=== PATIENT | male | born 1955 | race Caucasian/White ===

== ENCOUNTER 2018-09-02 11:07 | Emergency (ER) | payer BC ==
[~2018-09-02] VITALS: Ht 182.9 cm; Wt 163.3 kg
[~2018-09-02 11:07] MED LIST: ALEVE220 MG PO; ASPIRIN325 MG PO; ATENOLOL50 MG PO; FUROSEMIDE40 MG PO; KEFLEX500 MG PO; NORCO 7.5-3251 EACH PO; [UNRECOGNIZED DRUG - OTHER] PO
== END 2018-09-02 11:36 | disposition home or self-care (01) ==
LOC: FSED 11:07
DX: R30.0 Dysuria (principal); N30.90 Cystitis, unspecified without hematuria
CPT/HCPCS: 81003; 87086; 87186; 99283

== ENCOUNTER 2019-04-26 18:20 | Inpatient (IN) | payer BC, OTHER ==
[~2019-04-26] VITALS: Ht 182.9 cm; Wt 176.4 kg
[~2019-04-26 18:20] MED LIST changes: +FENTANYL CITRATE/PF 100MCG/2 ML INJ ONE; +MIDAZOLAM HCL 2 MG/2 ML VIAL ONE
--- OUTSIDE RECORDS SUMMARY | 2019-04-26 18:25 | XMS REPORT ---
Author Author Julián Argueta Organization [employer] Address Unknown Phone Unavailable Care Team Providers Care Monkey Breeder Name Role Phone Julián Argueta CP Unavailable Allergies No Known Allergies Problems Problem Type Condition Code Onset Dates Condition Status Problem Primary osteoarthritis of left knee M17.12 Active Problem BMI 50.0-59.9, adult Z68.43 Active Assessment Pain in testicle N50.819 Active Medications Medication Code System Code Instructions Start Date End Date Status Dosage Nystatin [facility] 78829671419 558611 UNIT/GM Externally Twice a day March 11, 2019 March 21, 2019 Active 1 application to affected area Aspir-81 [facility] 36143275190 81 MG Orally Once a day Active 1 tablet Results No Known Results Summary Purpose [employer]ClinicalWorks Submission
--- OUTSIDE RECORDS SUMMARY | 2019-04-26 18:25 | XMS REPORT ---
Author Author Julián Argueta Organization [employer] Address Unknown Phone Unavailable Care Team Providers Care Living Coach Name Role Phone Julián Argueta CP Unavailable Allergies, Adverse Reactions, Alerts Substance Reaction Event Type N.K.D.A. Info Not Available Non Drug Allergy Problems Problem Type Condition Code Onset Dates Condition Status Problem Primary osteoarthritis of left knee M17.12 Active Problem BMI 50.0-59.9, adult Z68.43 Active Assessment Skin irritation R23.8 Active Assessment BMI 50.0-59.9, adult Z68.43 Active Assessment Pain in testicle N50.819 Active Assessment Potential for perineal swelling and discomfort Z91.89 Active Medications Medication Code System Code Instructions Start Date End Date Status Dosage Ibuprofen ND 46802931452 800 MG Orally every 6 hours prn Dec 08, 2018 Active 1 tablet with food or milk as needed Flexeril NDC 0 10 mg Orally three times a day (tid) as needed (prn) Dec 08, 2018 Active 1 tablet Nystatin ND 62660455109 234591 UNIT/GM Externally Twice a day March 11, 2019 March 21, 2019 Active 1 application to affected area Aspir-81 [place] 34306424374 81 MG Orally Once a day Active 1 tablet Vital Signs Date/Time: March 11, 2019 BMI 56.38 Index Weight 393 lbs Height 70 in Cardiac Monitoring Heart Rate 76 /min Blood Pressure Diastolic 72 mm Hg Blood Pressure Systolic 136 mm Hg Results No Known Results Summary Purpose [employer] Submission
--- OUTSIDE RECORDS SUMMARY | 2019-04-26 18:25 | XMS REPORT ---
Author Author Keeley Gardiner [facility] [employer] Address Unknown Phone Unavailable Care Team Providers Care Mold Chipper Name Role Phone Gonzalez Keeley Davila CP Unavailable Allergies, Adverse Reactions, Alerts Substance Reaction Event Type N.K.D.A. Info Not Available Non Drug Allergy Problems Problem Type Condition Code Onset Dates Condition Status Assessment Strain of lumbar region, initial encounter S39.012A Active Problem Primary osteoarthritis of left knee M17.12 Active Medications Medication Code System Code Instructions Start Date End Date Status Dosage Ibuprofen NDC 75593494528 800 MG Orally every 6 hours prn Dec 08, 2018 Jan 07, 2019 Active 1 tablet with food or milk as needed No OTC NDC 52523273496 In Vitro Active not defined Flexeril NDC 0 10 mg Orally three times a day (tid) as needed (prn) Dec 08, 2018 Jan 07, 2019 Active 1 tablet Aspir-81 NDC 32218677327 81 MG Orally Once a day Active 1 tablet Vital Signs Date/Time: Dec 08, 2018 BMI 56.96 Index Weight 397 lbs Height 70 in Cardiac Monitoring Heart Rate 83 /min Results No Known Results Summary Purpose eClinicalWorks Submission
--- OUTSIDE RECORDS SUMMARY | 2019-04-26 18:25 | XMS REPORT ---
Author Author [facility] Address Unknown Phone Unavailable Care Team Providers Care Seasonal Warehouse Associate Name Role Phone Unavailable Unavailable Problems This patient has no known problems. Allergies, Adverse Reactions, Alerts This patient has no known allergies or adverse reactions. Medications This patient has no known medications. Encounters Start Date/Time End Date/Time Encounter Type Admission Type Attending Clinicians Care Facility Care Department Encounter ID 2019-02-07 10:59:00 2019-02-07 10:59:00 [facility]patient [id number]
--- OUTSIDE RECORDS SUMMARY | 2019-04-26 18:25 | XMS REPORT | Continuity of Care Document ---
Author Author [facility] Interface Address Unknown Phone Unavailable Problems Problem Status Onset Date Classification Date Reported Comments Source XRAY Active 02/07/2019 [facility] Primary osteoarthritis of left knee Active Problem 04/02/2019 [facility] Acute right-sided low back pain with right-sided sciatica Active Problem 02/15/2019 [facility] Strain of lumbar region, initial encounter Active Diagnosis 01/18/2019 [facility] BMI 50.0-59.9, adult Active Problem 04/02/2019 [facility] Pain in testicle Active Diagnosis 04/02/2019 [facility] Hematochezia Active Diagnosis 02/15/2019 [facility] Skin irritation Active Diagnosis 04/02/2019 [facility] Potential for perineal swelling and discomfort Active Diagnosis 04/02/2019 [facility] Epididymal cyst Active Diagnosis 04/02/2019 [facility] Medications Medication Details Route Status Patient Instructions Ordering Provider Order Date Source Nystatin 1 application to affected area Externally Active 087725 UNIT/GM Externally Twice a day [place] 03/11/2019 [facility] Cipro 1 tablet Orally Active 500 mg Orally every 12 hrs [place] 01/16/2019 [facility] Flexeril 1 tablet Orally Active 10 mg Orally three times a day (tid) as needed (prn) [place] 12/08/2018 [facility] Ibuprofen 1 tablet with food or milk as needed Orally Active 800 MG Orally every 6 hours prn [place] 12/08/2018 [facility] Atenolol 50 Mg Tablet, 50 Mg Oral Daily Active 10/12/2014 [facility] [place] , Oral Active 10/12/2014 [facility] Furosemide 40 Mg Tablet, 40 Mg Oral Daily Active 10/12/2014 [facility] Naproxen Sodium (Aleve) 220 Mg Tablet, 220 Mg Oral Daily Active 10/12/2014 [facility] Aspir-81 1 tablet Orally Active 81 MG Orally Once a day [facility] No OTC not defined In Vitro Active In Vitro Carlos Davila [facility] Aspirin 325 Mg Tablet As Needed as needed for Headache Active [facility] Cephalexin Monohydrate (Keflex) 500 Mg Capsule Three Times A Day Active [facility] Hydrocodone Bit/Acetaminophen ([place] 7.5-325 Tablet) 1 Each Tablet Every 4 Hours as needed for Pain Active [facility] Allergies, Adverse Reactions, Alerts Substance Category Reaction Severity Reaction type Status Date Reported Comments Source No Known Drug Allergies Unknown Allergy to Substance Active 12/23/2009 [facility] N.K.D.A. Adverse Reaction Info Not Available Adverse Reaction Active 03/28/2019 [facility] Immunizations Immunization Date Given Site Status Last Updated Comments Source Results Order Name Results Value Reference Range Date Interpretation Comments Source Spine lumbar 2 or 3 views DX Spine lumbar 2 or 3 views DX Lumbar spine 3 views: There is normal alignment without fracture or dislocation. There is mild multilevel disc space narrowing without significant changes of the endplates. Small vertebral body spurs at L1-L2 and L3-L4 are noted. The SI joints are within normal limits. Mild atherosclerotic calcification in the distal aorta is noted. There are no other significant soft tissue abnormalities. IMPRESSION: Mild degenerative changes without acute radiographic abnormalities in the lumbar spine. [id number] 02/07/2019 - - Read by: Ross Floyd MD Dictated Date/time: 02/07/19 16:09 Electronically Signed by: Ross Floyd MD 02/07/19 16:11 FINAL REPORT [facility] Vital Signs Vital Sign Value Date Comments Source Weight 398 03/28/2019 [facility] Height 70 03/28/2019 [facility] Heart Rate 75 03/28/2019 [facility] Diastolic (mm Hg) 82 03/28/2019 [facility] Systolic (mm Hg) 146 03/28/2019 [facility] Weight 393 03/11/2019 [facility] Height 70 03/11/2019 [facility] Heart Rate 76 03/11/2019 [facility] Diastolic (mm Hg) 72 03/11/2019 [facility] Systolic (mm Hg) 136 03/11/2019 [facility] Weight 394 02/09/2019 [facility] Height 70 02/09/2019 [facility] Heart Rate 97 02/09/2019 [facility] Diastolic (mm Hg) 72 02/09/2019 [facility] Systolic (mm Hg) 138 02/09/2019 [facility] Weight 390 01/16/2019 [facility] Height 70 01/16/2019 [facility] Heart Rate 78 01/16/2019 [facility] Diastolic (mm Hg) 64 01/16/2019 [facility] Systolic (mm Hg) 136 01/16/2019 [facility] Weight 397 12/08/2018 [facility] Height 70 12/08/2018 [facility] Heart Rate 83 12/08/2018 [facility] Encounters Location Location Details Encounter Type Encounter Number Reason For Visit Attending Provider ADM Date DC Date Status Source Registered Emergency Room [id number] CAMMY ULRICH MD 09/02/2018 [facility] [place] Outpatient [id number] Keeley [facility] Davila 02/07/2019 02/08/2019 [facility] Procedures Procedure Code Date Perfomer Comments Source
--- OUTSIDE RECORDS SUMMARY | 2019-04-26 18:25 | XMS REPORT ---
Author Author Julián Argueta Organization [employer] Address Unknown Phone Unavailable Care Team Providers Care Revolving Inventory Clerk Name Role Phone Julián Argueta CP Unavailable Allergies, Adverse Reactions, Alerts Substance Reaction Event Type N.K.D.A. Info Not Available Non Drug Allergy Problems Problem Type Condition Code Onset Dates Condition Status Problem Primary osteoarthritis of left knee M17.12 Active Problem BMI 50.0-59.9, adult Z68.43 Active Assessment Potential for perineal swelling and discomfort Z91.89 Active Assessment Skin irritation R23.8 Active Assessment Epididymal cyst N50.3 Active Assessment Pain in testicle N50.819 Active Medications Medication Code System Code Instructions Start Date End Date Status Dosage Aspir-81 [facility] 20933910181 81 MG Orally Once a day Active 1 tablet Vital Signs Date/Time: March 28, 2019 BMI 57.10 Index Weight 398 lbs Height 70 in Cardiac Monitoring Heart Rate 75 /min Blood Pressure Diastolic 82 mm Hg Blood Pressure Systolic 146 mm Hg Results No Known Results Summary Purpose eClinicalWorks Submission
--- OUTSIDE RECORDS SUMMARY | 2019-04-26 18:25 | XMS REPORT | Summary of Care ---
Author Author [facility] Organization [facility] Address Unknown Phone Unavailable Encounter HQ Encntr_alias(FIN) [id number] Date(s): 02/07/19 - 02/07/19 [facility] [address] [place] [address]- Discharge Disposition: Home or Self Care Attending Physician: Keeley Gardiner DO Vital Signs No data available for this section Problem List No data available for this section Allergies, Adverse Reactions, Alerts Substance Reaction Severity Status NKDA Active Medications No data available for this section Results No data available for this section Immunizations No data available for this section Procedures No data available for this section Social History No data available for this section Assessment and Plan No data available for this section
--- OUTSIDE RECORDS SUMMARY | 2019-04-26 18:25 | XMS REPORT ---
Author Author Sanaz Hall Organization [employer] Address Unknown Phone Unavailable Care Team Providers Care Hospital Aide Name Role Phone Sanaz Hall Unavailable Allergies, Adverse Reactions, Alerts Substance Reaction Event Type N.K.D.A. Info Not Available Non Drug Allergy Problems Problem Type Condition Code Onset Dates Condition Status Problem Primary osteoarthritis of left knee M17.12 Active Problem Acute right-sided low back pain with right-sided sciatica M54.41 Active Assessment Hematochezia K92.1 Active Medications Medication Code System Code Instructions Start Date End Date Status Dosage Aspir-81 NDC 55700342687 81 MG Orally Once a day Active 1 tablet Ibuprofen NDC 19920869524 800 MG Orally every 6 hours prn Dec 08, 2018 Active 1 tablet with food or milk as needed Flexeril NDC 0 10 mg Orally three times a day (tid) as needed (prn) Dec 08, 2018 Active 1 tablet Vital Signs Date/Time: February 09, 2019 BMI 56.53 Index Weight 394 lbs Height 70 in Cardiac Monitoring Heart Rate 97 /min Blood Pressure Diastolic 72 mm Hg Blood Pressure Systolic 138 mm Hg Results Name Result Date Reference Range Unit Abnormality Flag CBC ----Platelets 325 [id number] ----NEUTROPHILS mid-0.8,gra-3.6 20190209 ----MCHC 32.0 20190209 ----MCH 31.1 20190209 ----MCV 96.9 20190209 ----RDW 13.0 [id number] ----WBC 6.3 91688177 ----Neutrophils (Absolute) mid-12.8H 20190209 ----RBC 4.54 20190209 ----Hemoglobin 14.1 70324249 ----Hematocrit 44.0 [id number] Summary Purpose eClinicalWorks Submission
--- OUTSIDE RECORDS SUMMARY | 2019-04-26 18:25 | XMS REPORT ---
Author Author Julián Argueta Organization [employer] Address Unknown Phone Unavailable Care Team Providers Care Oil Field Operator Name Role Phone Julián Argueta CP Unavailable Allergies, Adverse Reactions, Alerts Substance Reaction Event Type N.K.D.A. Info Not Available Non Drug Allergy Problems Problem Type Condition Code Onset Dates Condition Status Problem Primary osteoarthritis of left knee M17.12 Active Problem Acute right-sided low back pain with right-sided sciatica M54.41 Active Assessment Strain of lumbar region, initial encounter S39.012A Active Assessment Acute right-sided low back pain with right-sided sciatica M54.41 Active Medications Medication Code System Code Instructions Start Date End Date Status Dosage Flexeril NDC 0 10 mg Orally three times a day (tid) as needed (prn) Dec 08, 2018 Active 1 tablet Ibuprofen NDC 30615063682 800 MG Orally every 6 hours prn Dec 08, 2018 Active 1 tablet with food or milk as needed Aspir-81 NDC 79520837300 81 MG Orally Once a day Active 1 tablet Cipro NDC 05681033962 500 mg Orally every 12 hrs Jan 16, 2019 January 30, 2019 Active 1 tablet Vital Signs Date/Time: Jan 16, 2019 BMI 55.95 Index Weight 390 lbs Height 70 in Cardiac Monitoring Heart Rate 78 /min Blood Pressure Diastolic 64 mm Hg Blood Pressure Systolic 136 mm Hg Results Name Result Date Reference Range Unit Abnormality Flag URINE AUTO W/O SCOPE ----Spec [place] 1.020 20190116 ----Turbidity CLEAR 20190116 ----Glucose NEG 20190116 ----Ketones NEG 20190116 ----Blood LARGE 20190116 ----Bili SMALL 20190116 ----Color YELLOW 20190116 ----pH 5.0 20190116 ----Leuk Est MODERATE 20190116 ----Nitrite POSITIVE 20190116 ----Urobilinogen 0.2 20190116 ----Protein TRACE 20190116 Summary Purpose eClinicalWorks Submission
[2019-04-26] MEDS ORDERED: SODIUM CHLORIDE 0.9% 1000ML 1,000 ML IV SCH (19:00)
[2019-04-26] MEDS ORDERED: PIPER-TAZ 3.375 GM 50 ML IV ONE (19:00)
[2019-04-26] MEDS ORDERED: PIPER-TAZ 3.375 GM 50 ML ONE ×2 (19:03→19:06)
[2019-04-26] MEDS ORDERED: SODIUM CHLORIDE 0.9% 1000ML 1,000 ML ONE (19:03)
[2019-04-26] MEDS ORDERED: VANCOMYCIN 1GM/NS 250 ML 250 ML IV ONE (19:15)
[2019-04-26] MEDS ORDERED: IOPAMIDOL 370 MG/ML 200 ML INFUS..BTL INJ ONE (19:16)
[2019-04-26] MEDS ORDERED: SODIUM CHLORIDE 0.9% 50ML 50 ML ONE (19:16)
[2019-04-26] MEDS ORDERED: ONDANSETRON HCL INJ 2MG/ML 2ML 2 MG/ML VIAL IV PRN (20:00)
[2019-04-26] MEDS ORDERED: MORPHINE SULFATE INJ 4 MG/ML INJ 1ML IV PRN (20:15)
--- NOTE | 2019-04-26 20:32 | Diagnostic Imaging Report ---
EXAM: CT Abdomen and Pelvis WITH contrast INDICATION: Evaluate for a small bowel obstruction COMPARISON: CT abdomen and pelvis 12/15/2011 TECHNIQUE: Abdomen and pelvis were scanned utilizing a multidetector helical scanner from the lung base to the pubic symphysis after administration of IV contrast. Coronal and sagittal reformations were obtained. Routine protocol was performed. Scan was performed when during portal venous phase. IV CONTRAST: 100 mL of Isovue-370 ORAL CONTRAST: None RADIATION DOSE: Total DLP: 914.99 mGy*cm Estimated effective dose: (DLP x 0.015 x size factor) mSv COMPLICATIONS: Suboptimal evaluation of the abdomen and pelvis due to a scattered radiation from the adjacent abdominal wall and pelvic wall fat. FINDINGS: LINES and TUBES: None. LOWER THORAX: Unremarkable HEPATOBILIARY: No focal hepatic lesions. No biliary ductal dilation. GALLBLADDER: No radio-opaque stones or sludge. No wall thickening. SPLEEN: No splenomegaly. PANCREAS: Not well visualized. ADRENALS: Not visualized. KIDNEYS/URETERS: Kidneys enhance symmetrically. No hydronephrosis. Suboptimal evaluation of what appear to be few bilateral renal cysts. Stones cannot be evaluated. GI TRACT: No abnormal distention, wall thickening, or evidence of bowel obstruction. Scattered diverticulosis throughout the sigmoid colon. Appendix is not visualized. PELVIC ORGANS/BLADDER: Unremarkable. LYMPH NODES: No lymphadenopathy. VESSELS: Unremarkable. PERITONEUM / RETROPERITONEUM: No free air or fluid. BONES: Mild multilevel degenerative changes of the lumbar spine. SOFT TISSUES: Anterior ventral hernia on thinning few loops of small bowel which appear nondilated. IMPRESSION: Suboptimal examination due to severe artifact in the abdomen and pelvis. No bowel dilatation. Diverticulosis of the sigmoid colon without diverticulitis. Most of the solid organs are nondiagnostic. Signed by: Dr. Andressa Díaz M.D. on 04/26/2019 8:28 PM
[2019-04-26] MEDS: SODIUM CHLORIDE 0.9% 1000ML 1,000 ML IV SCH (21:30)
--- NOTE | 2019-04-26 21:40 | NUR ---
PT IS TRANSFERRED FROM [facility] .AOX3 .PT IS AMBULATORY AND HE IS OBESE .PT HAS ABSCESS AT LOWER ABDOMINAL .DENIES PAIN PT HAS NO HOME MEDS .PT TAKES ASA ORIENTED THE PT TO THE ENVIRONMENT AND ASSESSMENT DONE PT HAS IV AT LEFT AC RUNNING VANCOMYCIN .CALL LIGHT WITH IN REACH .CONTINUE TO MONITOR CALL LIGHT WITH IN REACH CONTINUE TO MONITOR
[2019-04-26 22:27] VITALS: BP 134/83
--- NOTE | 2019-04-26 23:15 | NUR ---
ABD ABSCESS WALL WAS BLEEDING NOTIFIED DR ASTUDILLO HE SAID OK AND PUT PRESSURE DEPRESSING .PRESSURE DRESSING DONE AND BLEEDING STOPPED NOW .CONTINUE TO MONITOR
[2019-04-27] VITALS (9 sets, daily range): BP systolic 113–146; BP diastolic 59–68
[2019-04-27] MEDS: PIPER-TAZ 3.375 GM 50 ML IV SCH ×5 (02:51→23:29)
[2019-04-27 05:52] LABS: BASOPHILS # (AUTO) 0.1 (0.0-0.1); BASOPHILS % 0.5 % (0.0-1.0); EOSINOPHILS # (AUTO) 0.4 (0.0-0.4); HEMATOCRIT 39.7 % (38.2-49.6); HEMOGLOBIN 13.5 g/dL (14.0-18.0); LYMPHOCYTES # (AUTO) 2.4 (1.0-3.2); LYMPHOCYTES % 19.2 % (18.0-39.1); MEAN CORPUSCULAR HEMOGLOBIN 31.5 pg (28-32); MEAN CORPUSCULAR VOLUME 92.8 fL (81-99); MONOCYTES # (AUTO) 1.5 (0.2-0.8); MONOCYTES % 11.8 % (4.4-11.3); NEUTROPHILS # (AUTO) 8.1 (2.1-6.9); NEUTROPHILS % 64.8 % (38.7-80.0); PLATELET COUNT 367 x10e3/uL (140-360); RED BLOOD COUNT 4.28 x10e6/uL (4.3-5.7); RED CELL DISTRIBUTION WIDTH 12.7 % (11.7-14.4)
[2019-04-27 06:04] LABS: ALANINE AMINOTRANSFERASE 14 IU/L (0-55); ALBUMIN 2.8 g/dL (3.5-5.0); ALBUMIN/GLOBULIN RATIO 0.7 (0.8-2.0); ALKALINE PHOSPHATASE 48 IU/L (40-150); ANION GAP 10.7 mmol/L (8-16); BLOOD UREA NITROGEN 9 mg/dL (7-26); BUN/CREATININE RATIO 12 (6-25); CALCIUM 8.8 mg/dL (8.4-10.2); CARBON DIOXIDE 24 mmol/L (22-29); CHLORIDE 101 mmol/L (98-107); CREATININE, SERUM 0.78 mg/dL (0.72-1.25); EST GLOMERULAR FILTRATION RATE > 60 ML/MIN (60-); GLUCOSE 106 mg/dL (74-118); POTASSIUM 3.7 mmol/L (3.5-5.1); SODIUM 132 mmol/L (136-145)
--- NOTE | 2019-04-27 06:28 | NUR ---
PT WAS BLEEDING FROM THE ABD WALL ABSCESS AND CHANGED DRESSING AND APPLIED PRESSURE DRESSING.DENIES PAIN .CALL LIGHT WITH IN REACH .CONTINUE TO MONITOR
[2019-04-27] MEDS: SODIUM CHLORIDE 0.9% 1000ML 1,000 ML IV SCH ×3 (06:47→19:58)
--- NOTE | 2019-04-27 07:03 | NUR ---
BEDSIDE REPORT GIVEN TO THE ONCOMING NURSE.
--- NOTE | 2019-04-27 07:05 | NUR ---
pt alert resp even and unlabored at this time no distress noted at this time, no c/o pain to abdomen area, pt able to make needs known will cont to monitor. call light in reach.
--- NOTE | 2019-04-27 10:55 | NUR ---
pt off unit for procedure.
[2019-04-27] MEDS ORDERED: HYDROCODONE/APAP 7.5MG-325MG 1 EA TAB PO PRN (12:15)
--- NOTE | 2019-04-27 12:51 | NUR ---
pt return from procedure.
--- NOTE | 2019-04-27 14:59 | NUR ---
Nutrition Screen Note RD Recommendation for Physician: -Rec ADAT to GI soft diet as medically appropriate Plan of Care: RD following, monitoring for tolerance and adequacy Nutrition reason for involvement: Nutrition Risk Trigger MST Primary Diagnose(s): abdominal wall abscess, cellulitis PMH: no H&P in chart Ht: 72in Wt: 389.06lb BMI: 52.8kg/m2 IBW:178lb RD Assessment: (04/27) Chart reviewed. Labs and meds reviewed. 64yo M, who was admitted for abdominal wall abscess. Visited pt in the room. 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 No complains of abdominal pain, nausea or vomiting. Pt denied any chewing or swallowing difficulty. Will continue to monitor and follow. Current Diet: NPO Malnutrition Evaluation (04/27) The patient does not meet criteria for a specified degree of malnutrition at this time. Will re-evaluate at follow-up as appropriate. Diet Education Needs Assessment: Diet education not indicated. Nutrition Care Level: low Signed: Gina Krause, MS, RD, LD
[2019-04-27] MEDS ORDERED: DEXAMETHASONE SOD PHOS INJ 4 MG/ML VIAL ONE (17:41)
[2019-04-27] MEDS ORDERED: ONDANSETRON HCL INJ 2MG/ML 2ML 2 MG/ML VIAL ONE (17:41)
[2019-04-27] MEDS ORDERED: SEVOFLURANE INHAL SOLN 250 ML PEN BTL ONE (17:41)
[2019-04-27] MEDS ORDERED: ROCURONIUM BROMIDE 10 MG/ML 5ML VIAL ONE (17:41)
[2019-04-27] MEDS ORDERED: LIDOCAINE HCL 2% LOCAL INJ 5 ML SDV VIAL INJ ONE (17:41)
[2019-04-27] MEDS ORDERED: SUCCINYLCHOLINE 200 MG/10 ML SYR ONE (17:41)
[2019-04-27] MEDS ORDERED: PROPOFOL IV EMULSION 10 MG/ML 20 ML VIAL ONE (17:41)
--- NOTE | 2019-04-27 18:56 | Operative Report ---
DATE OF PROCEDURE: 04/27/2019 SURGEON: Rory Burch MD PREOPERATIVE DIAGNOSIS: Diffuse cellulitis of the abdominal wall with full-thickness necrosis. POSTOPERATIVE DIAGNOSIS: Diffuse cellulitis of the abdominal wall with full-thickness necrosis. OPERATION PERFORMED: Resection of necrotizing subcutaneous infection of the left lower quadrant of the abdominal wall. ANESTHESIA: General. COMPLICATIONS: None. ESTIMATED BLOOD LOSS: 75 mL. DESCRIPTION OF PROCEDURE: With the patient lying in bed in the supine position and under good general endotracheal anesthesia, the abdomen was prepped with Betadine solution and draped in the usual manner. The necrotic skin in the left lower quadrant was then sharply excised, underneath a lot of necrotic subcutaneous tissue was encountered. This was all sharply debrided with knife all the way down to the fascia. There was a pocket in the left lower quadrant and all of the necrotic tissue was slowly and carefully resected. After this was done and we had back to more normal appearing tissue, the whole wound was then copiously irrigated with dilute Betadine solution and packed with Betadine-soaked gauze. A dressing was applied. The sponge, lap, and needle count was correct. The patient tolerated the procedure well and returned to the recovery room in stable condition. Rory Burch MD JLR/MODL /[id number]
--- NOTE | 2019-04-27 19:00 | NUR ---
Received change of shift report from AM nurse. Walking rounds completed.
--- NOTE | 2019-04-27 19:12 | NUR ---
report given to on coming nurse for continued care.
[2019-04-28] VITALS (8 sets, daily range): BP systolic 111–119; BP diastolic 61–65
[2019-04-28 05:26] LABS: BASOPHILS % 0.2 % (0.0-1.0); EOSINOPHILS % 0.4 % (0.0-6.0); HEMATOCRIT 37.4 % (38.2-49.6); HEMOGLOBIN 12.7 g/dL (14.0-18.0); LYMPHOCYTES # (AUTO) 1.8 (1.0-3.2); LYMPHOCYTES % 17.2 % (18.0-39.1); MEAN CORPUSCULAR HEMOGLOBIN 31.8 pg (28-32); MEAN CORPUSCULAR VOLUME 93.7 fL (81-99); MONOCYTES # (AUTO) 0.8 (0.2-0.8); NEUTROPHILS # (AUTO) 7.9 (2.1-6.9); NEUTROPHILS % 74.4 % (38.7-80.0); PLATELET COUNT 352 x10e3/uL (140-360); RED BLOOD COUNT 3.99 x10e6/uL (4.3-5.7); RED CELL DISTRIBUTION WIDTH 12.3 % (11.7-14.4)
--- NOTE | 2019-04-28 05:41 | NUR ---
Patient resting quitly at this time.
[2019-04-28 05:48] LABS: BLOOD UREA NITROGEN 10 mg/dL (7-26); BUN/CREATININE RATIO 14 (6-25); CALCIUM 8.7 mg/dL (8.4-10.2); CARBON DIOXIDE 23 mmol/L (22-29); CHLORIDE 109 mmol/L (98-107); CREATININE, SERUM 0.69 mg/dL (0.72-1.25); EST GLOMERULAR FILTRATION RATE > 60 ML/MIN (60-); GLUCOSE 104 mg/dL (74-118); SODIUM 137 mmol/L (136-145)
[2019-04-28] MEDS: PIPER-TAZ 3.375 GM 50 ML IV SCH ×4 (06:00→23:45)
[2019-04-28] MEDS: SODIUM CHLORIDE 0.9% 1000ML 1,000 ML IV SCH ×3 (06:00→21:10)
--- NOTE | 2019-04-28 07:10 | NUR ---
PATIENT IS SITTING UP IN THE RECLINER- AWAKE AND IN STABLE CONDITION WITH NO S/S OF RESPIRATORY DISTRESS. PATIENT DENIES PAIN. IV FLUIDS INFUSING. DRESSING TO ABD IS DRY AND INTACT. CALL LIGHT IS WITHIN REACH, PATIENT INSTRUCTED TO CALL FOR ASSISTANCE NEEDED.
--- NOTE | 2019-04-28 11:37 | NUR ---
RECEIVED CALL FROM DR. LATANYA NICKERSON TO CONSULT WOUND CARE FOR WOUND VAC.
--- NOTE | 2019-04-28 13:45 | NUR ---
WOUND VAC APPLIED TO PATIENT'S WOUND AREA IN LLQ- DRESSING AROUND WOUND VAC IS INTACT AND DRY. NO LEAKS NOTED AT THIS TIME. PATIENT REMAINS IN BED AND IS IN STABLE CONDITION WITH NO S/S OF RESPIRATORY DISTRESS. PATIENT HAS CALL LIGHT IN HIS HAND.
--- NOTE | 2019-04-28 14:00 | NUR ---
WOUND CARE CONSULTATION - INITIAL EVALUATION WITH VAC PLACEMENT Patient admitted for cellulitis of abdominal wall with full thickness abscess. LABS: WBC10.66 HGB12.7 HCT37.4 NEUT%74.4 [id number] ALB2.8 IV ABX: Zosyn Wound Culture - Staph.A. - Sensitivity results pending. WC Consulted for Wound VAC Placement. S/P Surgical I&D and Washout 04/27/19 PATIENT VISIT: PATIENT AAOX4, Calm, cooperative and in good spirits. Ambulated to bed from chair without assistance Albino Score [address] Conservative PUP Active Presents with LLQ Abdominal ulceration, full thickness, oval shaped measuring 8x4x7 cm, No tunneling, no undermining, Tissue 100% granular mixed with some fatty tissue, dusky red color / maroon. Hemodynamically stable. VAC appropriate wound bed. Vac Applied while maintaining asepsis, tolerated procedure well with minimal discomfort. Pain level of 3/10. Voices some burning sensation but tolerable. Reviewed treatment plan. Patient verbalized understanding. IMPRESSION: LLQ Abdomen - S/P Surgical I&D and Washout 04/27/19 Change TIW RECOMMENDATION LLQ Abdomen - S/P Surgical I&D and Washout 04/27/19 - Cleanse wound with NSS and 4x4 Gauze - Apply NPWT -120mmHG Continuos, Change TIW Thank you for consulting with Wound Care. Addendum: 04/28/19 at 1415 by Leandro Palmer RN Amended: Links added.
[2019-04-28] MEDS ORDERED: ONDANSETRON HCL 4 MG ORAL DISINTEGRATING TAB PO PRN (18:00)
--- NOTE | 2019-04-28 19:15 | NUR ---
PATIENT IS ALERT AND IN STABLE CONDITION WITH NO S/S OF RESPIRATORY DISTRESS. PATIENT DENIES PAIN. WOUND VAC APPLIED. IV FLUIDS INFUSING. CALL LIGHT IS WITHIN REACH, PATIENT INSTRUCTED TO CALL FOR ASSISTANCE NEEDED. BEDSIDE REPORT GIVEN TO ONCOMING NURSE.
[2019-04-29] VITALS (8 sets, daily range): BP systolic 111–124; BP diastolic 56–70
[2019-04-29] MEDS: SODIUM CHLORIDE 0.9% 1000ML 1,000 ML IV SCH (05:48)
[2019-04-29] MEDS: PIPER-TAZ 3.375 GM 50 ML IV SCH ×4 (05:48→23:59)
--- NOTE | 2019-04-29 07:20 | NUR ---
PATIENT IS IN STABLE CONDITION WITH NO S/S OF RESPIRATORY DISTRESS. NO PAIN VOICED. IV FLUIDS INFUSING. WOUND VAC INTACT AND DRAINING. CALL LIGHT IS WITHIN REACH, PATIENT INSTRUCTED TO CALL FOR ASSISTANCE NEEDED.
--- NOTE | 2019-04-29 09:12 | NUR ---
CALL PLACED OUT TO DR. ASTUDILLO WITH HIS ANSWERING SERVICE- CALLED TO INFORM OF PATIENT'S WOUND CULTURE AND ANTIBIOTIC TREATMENT. AWAITING CALLBACK.
--- NOTE | 2019-04-29 09:18 | NUR ---
RECEIVED CALLBACK FROM DR. ASTUDILLO - INFORMED DR. ASTUDILLO OF ABD WOUND CULTURE RESULT AND CURRENT SCHEDULED ANTIBIOTIC. NEW ORDER RECEIVED FOR VANCO 1 GRAM Q12H.
[2019-04-29] MEDS: VANCOMYCIN 1GM/NS 250 ML 250 ML IV SCH ×2 (10:12→20:49)
--- NOTE | 2019-04-29 19:04 | NUR ---
PATIENT IS SITTING IN THE RECLINER-IN STABLE CONDITION WITH NO S/S OF RESPIRATORY DISTRESS. NO PAIN VOICED. IV FLUID INFUSING. WOUND VAC APPLIED. CALL LIGHT IS WITHIN REACH OF PATIENT- PATIENT INSTRUCTED TO CALL FOR ASSISTANCE NEEDED. BEDSIDE REPORT GIVEN TO ONCOMING NURSE.
[2019-04-30] VITALS (8 sets, daily range): BP systolic 126–145; BP diastolic 53–73
[2019-04-30] MEDS: PIPER-TAZ 3.375 GM 50 ML IV SCH ×4 (05:33→23:53)
--- NOTE | 2019-04-30 07:22 | NUR ---
PATIENT IS AWAKE, AMBULATING IN HIS ROOM AND IS IN STABLE CONDITION WITH NO S/S OF RESPIRATORY DISTRESS. PATIENT DENIES PAIN. IV FLUIDS INFUSING. WOUND VAC APPLIED. CALL LIGHT IS WITHIN REACH OF PATIENT- PATIENT INSTRUCTED TO CALL FOR ASSISTANCE NEEDED.
[2019-04-30] MEDS: VANCOMYCIN 1GM/NS 250 ML 250 ML IV SCH ×2 (09:27→20:40)
--- NOTE | 2019-04-30 10:21 | NUR ---
DR. ASTUDILLO ON THE UNIT, SPOKE TO DR. ASTUDILLO ON PATIENT'S VANCO TROUGH OF 7.6- NO NEW ORDER RECEIVED. RECEIVED ORDER TO HAVE WOUND VAC CHANGES/DRESSING CHANGES SETUP WITH [facility].
--- NOTE | 2019-04-30 19:01 | NUR ---
PATIENT IS IN STABLE CONDITION WITH NO S/S OF RESPIRATORY DISTRESS. NO PAIN VOICED. IV FLUIDS INFUSING. WOUND VAC APPLIED. CALL LIGHT IS WITHIN REACH OF PATIENT, PATIENT INSTRUCTED TO CALL FOR ASSISTANCE NEEDED. BEDSIDE REPORT GIVEN TO ONCOMING NURSE.
--- NOTE | 2019-04-30 21:45 | NUR ---
PATIENT'S IV DISLODGED FROM LEFT AC, FLUID WAS LEAKING. IV REPLACED BY CHARGE NURSE IN RIGHT AC WITH 20G. WILL CONTINUE TO MONITOR SITE.
--- NOTE | 2019-04-30 22:15 | NUR ---
PATIENT REQUESTED TO REST IN RECLINER. PATIENT IS STABLE, SHOWS NO SIGNS OF DISTRESS, CALL LIGHT IS WITHIN EASY REACH, WILL CONTINUE TO MONITOR.
[2019-05-01] VITALS: BP 122/64
--- NOTE | 2019-05-01 01:39 | NUR ---
PATIENT RESTING COMFORTABLY IN RECLINER. BOTH EYES ARE CLOSED, C-PAP MACHINE IN USE, NO SIGNS OF DISTRESS NOTED. CALL LIGHT WITHIN REACH, WILL CONTINUE TO MONITOR.
[2019-05-01] MEDS: PIPER-TAZ 3.375 GM 50 ML IV SCH ×2 (05:08→11:49)
[2019-05-01 05:24] VITALS: BP 122/82
[2019-05-01 07:51] VITALS: BP 162/85
[2019-05-01 08:00] VITALS: BP 162/85
[2019-05-01] MEDS: VANCOMYCIN 1GM/NS 250 ML 250 ML IV SCH (08:23)
[2019-05-01 11:41] VITALS: BP 169/77
--- NOTE | 2019-05-01 13:58 | NUR ---
SPOKE W [facility] REGARDING WOUND VAC FOR HOME. STATES HE WAS IN THE PROCESS OF COMPLETING THE WOUND VAC FOR Kaylna STACY. STATES HE NEEDED DR. ASTUDILLO SIGNATURE TO COMPLETE THE PAPERWORK. STATES HE WILL PLACE THE FORM ON THE FRONT OF THE CHART. STATES IF DR. ASTUDILLO DOES NOT SIGN THE PAPERWORK BY 5PM THE PT MAY HAVE TO STAY UNTIL THE AM FOR THE VAC TO BE DELIVERED. THE PT IS TO F/U W THE OUPT WOUND CARE CLINIC PER [facility]. WILL NOTIFY NURSING.
--- NOTE | 2019-05-01 14:15 | NUR ---
RECEIVED CALL FROM COURTNEY HERNANDEZ. WANTED THE PT TO KNOW SHE WAS AVAILABLE @ [phone] EXT [phone].
--- NOTE | 2019-05-01 15:34 | NUR ---
WOUND CARE CONSULTATION - FOLLOW UP WITH VAC PLACEMENT Patient admitted for cellulitis of abdominal wall with full thickness abscess. LABS: WBC10.66 HGB12.7 HCT37.4 NEUT%74.4 LYQ403 ALB2.8 IV ABX: Zosyn Wound Culture - MRSA+ WC Consulted for Wound VAC Placement. S/P Surgical I&D and Washout 04/27/19 PATIENT VISIT: PATIENT AAOX4, Calm, cooperative and in good spirits. Ambulates to bed from chair without assistance Albino Score [address] Conservative PUP Active Presents with LLQ Abdominal ulceration, full thickness, oval shaped , No tunneling, no undermining, Tissue 100% granular, beefy red. Healing Well. VAC Applied while maintaining asepsis, tolerated procedure well with minimal discomfort. Pain level of 2/10. Discharge Planning Education Provided. Patient to discharge home with [facility] visits once VAC approved. IMPRESSION: LLQ Abdomen - S/P Surgical I&D and Washout 04/27/19 ( HEALING ) RECOMMENDATION; Continue Current Treatment Plan LLQ Abdomen - S/P Surgical I&D and Washout 04/27/19 - Cleanse wound with NSS and 4x4 Gauze - Apply NPWT -120mmHG Continuous, Change TIW Thank you for consulting with Wound Care. Addendum: 05/01/19 at 1540 by Leandro Palmer RN Amended: Links added.
[2019-05-01 16:01] VITALS: BP 163/87
--- NOTE | 2019-05-01 16:31 | NUR ---
WOUND CARE CONSULTATION - HOME VAC SETUP REQUEST Education provided to patient of expectations and equipment reviewed. Patient to Follow Up at [facility] for next dressing change on Wednesday05/03/19 Signed & Completed documents submitted to [facility] for home vac approval. Total time spent : 55 min. Fax confirmation received. OK. 05/01/19 @1625 Addendum: 05/01/19 at 1634 by Leandro Palmer RN Amended: Links added.
--- NOTE | 2019-05-01 16:55 | NUR ---
CALL MADE TO THE WOUND CARE CLINIC. SPOKE W NETO @ [phone]. STATES THEY WILL MAKE CONTACT W THE PT. NURSE NOTIFIED IF VAC IS APPROVED AND DELIVERED TODAY. FAXED FACE SHEET AND ORDER TO [phone]. [facility] FAXED [place] ORDER TO [facility].
--- NOTE | 2019-05-01 18:50 | NUR ---
Train Driver from wound vac [employer] is here to deliver pt wound vac. Pt has been instructed to contact outpatient wound clinic for dressing changes. All of his information has been faxed over to clinic. Pt verbalizes understanding of discharge and follow up instructions.
[2019-05-01] MEDS ORDERED: CLINDAMYCIN HC150 MG PO (19:28)
== END 2019-05-01 20:30 | disposition home or self-care (01) | DRG 571 ==
LOC: FSED 18:20 → ERHOLD 19:58 → MED/SURG3 21:15
PROVIDERS: ADMIT Surgery; ATTEND Surgery
PROC: 0JB80ZZ Excision of Abdomen Subcutaneous Tissue and Fascia, Open Approach (ICD-10-PCS; principal; 2019-04-27 11:18)
DX: L02.211 Cutaneous abscess of abdominal wall (principal); Z68.43 Body mass index [BMI] 50.0-59.9, adult; I96 Gangrene, not elsewhere classified; L03.311 Cellulitis of abdominal wall; I10 Essential (primary) hypertension; E66.01 Morbid (severe) obesity due to excess calories; Z79.82 Long term (current) use of aspirin
CPT/HCPCS: 36415; 74160; 80048; 80053; 80202; 85025; 87071; 87075; 87186; 87205; 94660; 97605; 99284; J1100; J2001; J2250; J2270; J2405; J2543; J3370; J7030; Q9967

== ENCOUNTER → 2019-05-03 | Outpatient (CLI) | payer OTHER ==
[~2019-05-03] MED LIST changes: +CLINDAMYCIN HC150 MG PO; -FENTANYL CITRATE/PF 100MCG/2 ML INJ ONE; -MIDAZOLAM HCL 2 MG/2 ML VIAL ONE
== END ==
LOC: WCC 16:17
PROVIDERS: ATTEND Surgery
DX: T81.89XA Other complications of procedures, not elsewhere classified, initial encounter (principal); Y83.8 Other surgical procedures as the cause of abnormal reaction of the patient, or of later complication, without mention of misadventure at the time of the procedure; L03.818 Cellulitis of other sites; K57.30 Diverticulosis of large intestine without perforation or abscess without bleeding; E66.3 Overweight

== ENCOUNTER → 2019-05-05 | Outpatient (CLI) | payer OTHER | LOC: WCC 14:03 | PROVIDERS: ATTEND Surgery | DX: T81.89XA Other complications of procedures, not elsewhere classified, initial encounter (principal); Y83.8 Other surgical procedures as the cause of abnormal reaction of the patient, or of later complication, without mention of misadventure at the time of the procedure; L03.818 Cellulitis of other sites; K57.30 Diverticulosis of large intestine without perforation or abscess without bleeding; E66.3 Overweight ==

== ENCOUNTER → 2019-05-08 | Outpatient (CLI) | payer OTHER | LOC: WCC 12:07 | PROVIDERS: ATTEND Surgery | DX: T81.89XA Other complications of procedures, not elsewhere classified, initial encounter (principal); Y83.8 Other surgical procedures as the cause of abnormal reaction of the patient, or of later complication, without mention of misadventure at the time of the procedure; L03.818 Cellulitis of other sites; K57.30 Diverticulosis of large intestine without perforation or abscess without bleeding; E66.3 Overweight ==

== ENCOUNTER → 2019-05-11 | Outpatient (CLI) | payer OTHER | LOC: WCC 12:07 | PROVIDERS: ATTEND Surgery | DX: T81.89XA Other complications of procedures, not elsewhere classified, initial encounter (principal); Y83.8 Other surgical procedures as the cause of abnormal reaction of the patient, or of later complication, without mention of misadventure at the time of the procedure; L03.818 Cellulitis of other sites; K57.30 Diverticulosis of large intestine without perforation or abscess without bleeding; E66.3 Overweight ==

== ENCOUNTER → 2019-05-15 | Outpatient (CLI) | payer OTHER | LOC: WCC 15:59 | PROVIDERS: ATTEND Pediatrics Sleep Medicine | DX: T81.89XA Other complications of procedures, not elsewhere classified, initial encounter (principal); Y83.8 Other surgical procedures as the cause of abnormal reaction of the patient, or of later complication, without mention of misadventure at the time of the procedure; L03.818 Cellulitis of other sites; K57.30 Diverticulosis of large intestine without perforation or abscess without bleeding; E66.3 Overweight ==

== ENCOUNTER → 2019-05-18 | Outpatient (CLI) | payer OTHER | LOC: WCC 09:15 | PROVIDERS: ATTEND Surgery | DX: T81.89XA Other complications of procedures, not elsewhere classified, initial encounter (principal); Y83.8 Other surgical procedures as the cause of abnormal reaction of the patient, or of later complication, without mention of misadventure at the time of the procedure; L03.818 Cellulitis of other sites; K57.30 Diverticulosis of large intestine without perforation or abscess without bleeding; E66.3 Overweight ==

== ENCOUNTER → 2019-05-22 | Outpatient (CLI) | payer OTHER | LOC: WCC 11:08 | PROVIDERS: ATTEND Surgery | DX: T81.89XA Other complications of procedures, not elsewhere classified, initial encounter (principal); L03.818 Cellulitis of other sites; K57.30 Diverticulosis of large intestine without perforation or abscess without bleeding; E66.3 Overweight ==

== ENCOUNTER → 2019-05-25 | Outpatient (CLI) | payer OTHER | LOC: WCC 08:59 | PROVIDERS: ATTEND Surgery | DX: T81.89XA Other complications of procedures, not elsewhere classified, initial encounter (principal); Y83.8 Other surgical procedures as the cause of abnormal reaction of the patient, or of later complication, without mention of misadventure at the time of the procedure; L03.818 Cellulitis of other sites; K57.30 Diverticulosis of large intestine without perforation or abscess without bleeding; E66.3 Overweight ==

== ENCOUNTER → 2019-05-29 | Outpatient (CLI) | payer OTHER | LOC: WCC 14:59 | PROVIDERS: ATTEND Surgery | DX: T81.89XA Other complications of procedures, not elsewhere classified, initial encounter (principal); Y83.8 Other surgical procedures as the cause of abnormal reaction of the patient, or of later complication, without mention of misadventure at the time of the procedure; L03.818 Cellulitis of other sites; K57.30 Diverticulosis of large intestine without perforation or abscess without bleeding; E66.3 Overweight ==

== ENCOUNTER → 2019-06-02 | Outpatient (CLI) | payer OTHER | LOC: WCC 13:43 | PROVIDERS: ATTEND Surgery | DX: T81.89XA Other complications of procedures, not elsewhere classified, initial encounter (principal); Y83.8 Other surgical procedures as the cause of abnormal reaction of the patient, or of later complication, without mention of misadventure at the time of the procedure; L03.818 Cellulitis of other sites; K57.30 Diverticulosis of large intestine without perforation or abscess without bleeding; E66.3 Overweight ==

== ENCOUNTER → 2019-06-05 | Outpatient (CLI) | payer OTHER | LOC: WCC 13:05 | PROVIDERS: ATTEND Surgery | DX: T81.89XA Other complications of procedures, not elsewhere classified, initial encounter (principal); Y83.8 Other surgical procedures as the cause of abnormal reaction of the patient, or of later complication, without mention of misadventure at the time of the procedure; L03.818 Cellulitis of other sites; K57.30 Diverticulosis of large intestine without perforation or abscess without bleeding; E66.3 Overweight ==